=== PATIENT | male | born 1980 | race Caucasian/White ===

== ENCOUNTER → 2017-08-23 | Outpatient (CLI) | payer OTHER ==
--- NOTE | 2017-08-23 14:20 | RAD ---
HISTORY: Low back pain. Study: Lumbar spine with obliques Comparison: None Findings: Five lumbar type vertebra present. Minimal lateral spurring is present at a few levels. Mild facet arthropathy is noted at multiple levels with [id number] at L4/L5 moderate moderately severe at L5/S1. There is a moderate sclerosis involving the lateral aspect of both sacroiliac joints. This i s slightly greater on the left. I see no definite evidence of erosive change or fusion. No pars def ects are identified. The lateral view demonstrates normal curvature and alignment. The vertebral sameer dies and intervertebral disc spaces are of normal height. IMPRESSION: 1. Lumbar spondylosis as described above. 2. No acute bony abnormalities are identified. 3. Findings suggesting possibility of sacroiliitis. Reported By:
== END ==
LOC: RAD 13:55
PROVIDERS: ATTEND Internal Medicine
DX: M51.16 Intervertebral disc disorders with radiculopathy, lumbar region (principal)
CPT/HCPCS: 72110

== ENCOUNTER → 2017-08-30 | Outpatient (CLI) | payer OTHER ==
--- NOTE | 2017-08-30 12:08 | MRI ---
STUDY: MRI OF THE LUMBAR SPINE HISTORY: Intervertebral disc disorder. Pain in left and right hip. Comparison: None. Technique: Multiplanar multi-sequence MRI of the lumbar spine was performed. Sagittal T1, sagittal T 2, and STIR images, axial T1, and axial T2 images were obtained. Findings: Sagittal images: Vertebral body heights and alignment are within normal limits. Marrow signal is age-appropriate. The re is degenerative endplate change identified, with Modic type 1 change at the opposing endplates of L5/S1. Intervertebral discs are fairly well preserved. The conus medullaris is normal in appearance terminating at the level of L1. Axial images: T12 -- L1: Normal. L1 -- L2: Normal. L2 -- L3: Normal. L3 -- L4: There is bilateral facet arthropathy. The central canal and neural foramina are adequate. L4 -- L5: There is bilateral facet arthropathy. The central canal and neural foramina are adequate. L5 -- S1: L5 appears to have a transitional appearance. The central canal and neural foramina are tha quate. IMPRESSION: 1. Mild lumbar spondylosis as described. 2. No significant spinal stenosis. 3. No significant neural foraminal stenosis. Reported By:
== END ==
LOC: RAD 08:23
PROVIDERS: ATTEND Internal Medicine
DX: M51.16 Intervertebral disc disorders with radiculopathy, lumbar region (principal); M25.552 Pain in left hip; M25.551 Pain in right hip
CPT/HCPCS: 72148